=== PATIENT | female | born 1945 | race Caucasian/White ===

== ENCOUNTER → 2016-07-17 | Outpatient (CLI) | payer MEDICARE, OTHER ==
[~2016-07-17] MED LIST: DARVOCET-N 1001 EACH PO; IBU-8800 MG PO
--- NOTE | 2016-07-21 13:26 | RADIOLOGY REPORT PS360 ---
DIG MAMM-SCREEN ABDIRAHMAN W/CAD CAD Screening ORDERING PHYSICIAN : Jaxon Donovan MD PATIENT AGE: 70 years GENDER: Female COMPARISON: Previous mammograms: June 2015, February 2012, digital mammograms with January 2010 & 2008 film screen mammogram INDICATION: Routine screening 70-year-old no hormones no new complaints noncontributory family history. TECHNIQUE: Standard CC and MLO images were obtained. R2 CAD reviewed. FINDINGS: Moderate density breast. Diffuse moderate fibroglandular elements both breast with similar pattern to previous studies. Nothing definitely acute RIGHT BREAST: Minor nodularity seen in 2011 again noted. Stable not of concern but no significant new findings LEFT BREAST:. Minimal nodularity throughout but no significant new findings.. Minimal nodularity towards deep axillary left breast actually stable since 2008 Bilateral follow-up in one year. Skin mole marker at superior left breast again observed a cancer density here IMPRESSION: No significant interval change. Moderately dense breast pattern decreases sensitivity mammography Follow up one year recommended BI-RADS CATEGORY: 2_Benign RECOMMENDED FOLLOWUP: 12M 12 MONTH FOLLOW-UP (A letter has been sent to the patient regarding results of the study.)
== END ==
LOC: RAD 10:45
DX: Z12.31 Encounter for screening mammogram for malignant neoplasm of breast (principal)
CPT/HCPCS: G0202

== ENCOUNTER → 2016-08-06 | Outpatient (CLI) | payer MEDICARE, OTHER ==
--- NOTE | 2016-08-06 18:34 | RADIOLOGY REPORT PS360 ---
CLAVICLE-LT ORDERING PHYSICIAN : Татьяна Prajapati APRN PATIENT AGE: 70 years GENDER: Female INDICATION: ACUTE LT SHOULDER PAIN Left shoulder pain and swelling. Fell in March 2016 with persistent pain. TECHNIQUE: Clavicle AP and angled view COMPARISON: September 2010 studies of left shoulder FINDINGS Left clavicle intact no fracture. AC joint and views of left shoulder included unremarkable. No significant change in appearance of clavicle since left shoulder study from 2010. [place] left lung clear. IMPRESSION: Negative left clavicle.
--- NOTE | 2016-08-06 18:34 | RADIOLOGY REPORT PS360 ---
CLAVICLE-LT ORDERING PHYSICIAN : Татьяна Prajapati APRN PATIENT AGE: 70 years GENDER: Female INDICATION: ACUTE LT SHOULDER PAIN Left shoulder pain and swelling. Fell in March 2016 with persistent pain. TECHNIQUE: Clavicle AP and angled view COMPARISON: September 2010 studies of left shoulder FINDINGS Left clavicle intact no fracture. AC joint and views of left shoulder included unremarkable. No significant change in appearance of clavicle since left shoulder study from 2010. [place] left lung clear. IMPRESSION: Negative left clavicle.
--- NOTE | 2016-08-06 18:36 | RADIOLOGY REPORT PS360 ---
[id number] VIEWS ORDERING PHYSICIAN : Татьяна Prajapati APRN PATIENT AGE: 70 years GENDER: Female INDICATION: ACUTE LT SHOULDER PAIN TECHNIQUE: 33 views left shoulder. Left shoulder pain swelling COMPARISON: Previous September 2010 left shoulder study FINDINGS 3 views of the left shoulder reveal no fracture nor dislocation . Mild diffuse demineralization. Glenohumeral joint is intact. AC joint intact and stable. Scapula unremarkable. Left lung apex is unremarkable. Mild degenerative changes lower C-spine noted on this and other studies from IMPRESSION: Left shoulder appears normal . Intact & unchanged since 2010
--- NOTE | 2016-08-06 18:37 | RADIOLOGY REPORT PS360 ---
CHEST(2 VIEWS-NOT PORTABLE) ORDERING PHYSICIAN : Татьяна Prajapati APRN PATIENT AGE: 70 years GENDER: Female INDICATION: chest symptoms left shoulder pain. ADENOPATHY PROCEDURE: CHEST(2 VIEWS-NOT PORTABLE) COMPARISON: None available FINDINGS: Lungs well expanded and clear with no active disease evident. No pneumothorax. No pleural effusion. Heart normal size. Normal pulmonary vascularity. Hilar and mediastinal structures appear satisfactory. Chest wall unremarkable. T-spine intact. IMPRESSION Lungs clear No active disease in the chest...
== END ==
LOC: RAD 11:14
DX: M25.512 Pain in left shoulder (principal); R59.1 Generalized enlarged lymph nodes

== ENCOUNTER → 2016-08-15 | Outpatient (CLI) | payer MEDICARE, OTHER ==
--- NOTE | 2016-08-15 16:34 | RADIOLOGY REPORT PS360 ---
MRI-UP EXT ANY JNT W/O-LT HISTORY: Left shoulder pain, lifting injury with pain ACUTE PAIN OF LT SHOULDER ORDERING PHYSICIAN: Cristi Sewell MD PATIENT AGE: 70 years COMPARISON: Radiograph of 08/06/2016 TECHNIQUE: Standard multiplanar multiecho sequences are performed without contrast. FINDINGS: There is a low-lying acromion with hypertrophic change of the acromioclavicular joint. Supraspinatus and infraspinatus tendons are thin with increased T2 signal. There is surface irregularity with increased T2 signal along the inferior aspect of both supraspinatus and infraspinatus tendons consistent with partial tears a complete tear with musculotendinous retraction not evident at this time. Subscapularis and teres minor tendons are intact. There is a small shoulder joint effusion. No obvious labral tear. Bicipital tendon is in place. There is some increased T2 signal at the base of the greater tuberosity of the humeral head with some cortical irregularity at this region. No fracture or dislocation. IMPRESSION: 1. Partial tears of the rotator cuff involving supraspinatus and infraspinatus tendon with thinning of the tendons and increased T2 signal. Complete tear with muscle and tendinous retraction not evident. 2. Small shoulder joint effusion. 3. Acromioclavicular arthropathy with subacromial stenosis
== END ==
LOC: RAD 14:23
DX: M25.512 Pain in left shoulder (principal)